=== PATIENT | female | born 2000 | race Caucasian/White ===

== ENCOUNTER 2021-08-23 15:20 | Emergency (ER) | payer OTHER, MEDICAID ==
[~2021-08-23] VITALS: Ht 154.9 cm; Wt 67.1 kg
[2021-08-23] MEDS ORDERED: NUVARING VAGIN1 EACH VAG (15:31)
[2021-08-23 15:56] LABS: ABSOLUTE EOSINOPHILS 0.1 thou/uL (0.0-0.7); ABSOLUTE LYMPHOCYTES 3.2 thou/uL (0.8-5.3); ABSOLUTE MONOCYTES 0.4 thou/uL (0.0-1.2); ABSOLUTE NEUTROPHILS 3.4 thou/uL (1.6-8.1); BASOPHILS 0.2 %; EOSINOPHILS 1.9 %; HEMATOCRIT 38.4 % (37.0-47.0); HEMOGLOBIN 13.2 gm/dL (12.0-15.0); LYMPHOCYTES 44.4 %; MCH 28.7 pg (26.0-34.0); MCHC 34.3 g/dL (28.0-37.0); MCV 83.7 fL (80.0-100.0); MONOCYTES 5.7 %; MPV 8.6 fl. (7.2-11.1); NUCLEATED RBCS 0 /100WBC; PLATELET COUNT* 271 thou/uL (150-400); POLYS 47.8 %; RBC 4.58 mil/uL (4.20-5.00); RDW-CV 13.1 % (10.5-14.5); WBC 7.1 thou/uL (4.0-11.0)
[2021-08-23 16:00] LABS: URINE BILIRUBIN NEGATIVE (Negative); URINE BLOOD NEGATIVE (Negative); URINE CLARITY CLEAR; URINE COLOR YELLOW; URINE GLUCOSE-RANDOM NEGATIVE (Negative); URINE KETONES NEGATIVE (Negative); URINE NITRITE-REFLEX NEGATIVE (Negative); URINE PROTEIN NEGATIVE (Negative)
[2021-08-23 16:07] LABS: CALCIUM 8.6 mg/dL (8.5-10.1); CREATININE 0.8 mg/dL (0.6-1.3); POTASSIUM 4.1 mmol/L (3.5-5.1)
[2021-08-23 16:09] LABS: URINE LEUKOCYTES-REFLEX 2+ (Negative)
[2021-08-23 16:11] LABS: ALBUMIN 3.5 g/dL (3.4-5.0); TOTAL BILIRUBIN 0.2 mg/dL (<0.1-1.0); TOTAL PROTEIN 6.8 g/dL (6.4-8.2)
[2021-08-23 16:11] LABS: BACTERIA-REFLEX 1-9 Few /HPF (None Seen); CASTS None Seen /LPF (None Seen); CRYSTALS None Seen /LPF (None Seen); MUCUS 0-3 Light strn/LPF (None Seen); SQUAMOUS 4-10 Moderate /LPF (0-3); URINE RBC 0-2 Rare /HPF (0-2); URINE WBC-REFLEX 6-15 Few /HPF (0-5)
[2021-08-23] MEDS ORDERED: CEPHALEXIN500 MG PO (17:15)
[2021-08-23 17:36] VITALS: BP 116/72
--- NOTE | 2021-08-24 14:44 | EKG ---
[place] [address] ELECTROCARDIOGRAM REPORT Name: GRACIELA FRAZIER Room: [facility]#: [id number] Admission: 08/23/21 Attend Phys: Discharge: 08/23/21 Date of : 2 Date of Service: 08/23/21 1520 Report #: [id number] THIS REPORT FOR: //name// [facility] ED Test Date: 2021-08-23 Test Time: 15:20:31 Pat Name: GRACIELA FRAZIER Department: Room: Gender: [employer] Supervisor: [facility] : 2000 Requested By: Michelet Walter Order Number: [id number] : Luis Mackey Measurements Intervals [place] Rate: 72 P: 29 MI: 116 QRS: 66 QRSD: 88 T: 6 QT: 388 QTc: 425 Interpretive Statements Sinus rhythm Borderline short [place] interval Minimal ST depression, inferior leads No previous ECG available for comparison Electronically Signed On 08-24-2021 14:43:46 CDT by Luis Mackey [email or web address] <ELECTRONICALLY SIGNED> By: Luis Mackey MD, [facility] 08/24/21 1443 1520 1520 Luis Mackey MD, [facility] /EPI
== END 2021-08-23 17:37 | disposition home or self-care (01) ==
LOC: M.ERS 15:20
PROVIDERS: Physician Assistant
DX: M94.0 Chondrocostal junction syndrome [Tietze] (principal); N39.0 Urinary tract infection, site not specified; R42 Dizziness and giddiness; Z79.899 Other long term (current) drug therapy